=== PATIENT | female | born 1990 | race Caucasian/White ===

== ENCOUNTER 2022-09-08 20:07 | Emergency (ER) | payer BC ==
[~2022-09-08] VITALS: Ht 182.9 cm; Wt 74.2 kg
[2022-09-08] MEDS ORDERED: KETOROLAC 15MG/ML VIAL IV ONE (20:45)
[2022-09-08] MEDS ORDERED: SODIUM CHLORIDE 0.9% 1,000 ML IV ONE (20:45)
[2022-09-08 21:10] LABS: CLARITY URINE CLEAR (CLEAR); COLOR URINE YELLOW (YELLOW); KETONES URINE NEGATIVE (NEGATIVE); LEUKOCYTE ESTERASE URINE NEGATIVE (NEGATIVE); NITRITE URINE NEGATIVE (NEGATIVE); OCCULT BLOOD URINE NEGATIVE (NEGATIVE); PH URINE 5.5 (4.5-8.0); PROTEIN URINE NEGATIVE (NEGATIVE)
[2022-09-08 21:59] LABS: BASOPHILS % 0.2 % (0.0-2.0); EOSINOPHILS % 0.7 % (0.0-5.0); HEMATOCRIT. 36.6 % (36.0-48.0); HEMOGLOBIN. 12.5 g/dL (12.0-16.0); LYMPHOCYTES % 14.1 % (20.0-50.0); MEAN CORPUSCULAR HEMOGLOBIN 31.8 pg (28.0-32.0); MEAN CORPUSCULAR VOLUME 93.2 fL (81.0-99.0); MEAN PLATELET VOLUME 7.6 fl (7.4-10.4); MONOCYTES % 7.3 % (2.0-8.0); NEUTROPHILS % 77.7 % (40.0-76.0); PLATELET 407 x1000/uL (130-400); RED BLOOD CELL COUNT 3.93 mill/uL (4.2-5.4); RED CELL DISTRIBUTION WIDTH 12.4 % (11.6-14.6)
[2022-09-08 22:05] LABS: CHLORIDE 100 mEq/L (98-107)
[2022-09-08 22:12] LABS: HCG SCREEN NEGATIVE
== END 2022-09-09 01:20 | disposition home or self-care (01) ==
LOC: ER 20:07
DX: R10.12 Left upper quadrant pain (principal); R30.0 Dysuria; R31.9 Hematuria, unspecified
CPT/HCPCS: 36415; 76770; 80053; 81003; 81025; 83690; 84703; 85025; 99284; J7030